=== PATIENT | female | born 2005 | race Two or more races ===

== ENCOUNTER 2024-02-14 18:50 | Emergency (ER) | payer SELFPAY ==
--- NOTE | 2024-02-14 19:03 | ED_ITS ---
HPI - General Adult General Chief complaint: General Medical Stated complaint: left ear pain sore throat Time Seen by Provider: 02/14/24 19:22 Source: patient and other (partner) Mode of arrival: ambulatory Limitations: no limitations History of Present Illness ED Provider: KHURRAM ARTIS PA-C HPI narrative: 18-year-old female with no significant past medical history presents to the emergency department today for evaluation of sore throat, subjective fevers, headaches, bilateral ear pain (left> right) x5 days. Reports taking Tylenol and Motrin yesterday. Denies known sick contacts however she did just arrived in [place] from [place] 5 days ago. Denies eye pain, cough, sputum production, nausea or vomiting, dysphagia, hearing loss, discharge from ears. Related Data Previous Rx's ?Medication ?Instructions ?Recorded benzocaine 15 mg-menthol 2.6 mg 1 nani mucous membrane Q2-4H PRN 02/14/24 lozenges (Cepacol Sore Throat sore throat #16 ea (benzocaine-menthol)) penicillin V potassium 500 mg 500 mg PO BID 10 days #19 tabs 02/14/24 tablet Allergies Allergy/AdvReac Type Severity Reaction Status Date / Time No Known Allergies Allergy Verified 02/14/24 19:11 Review of Systems Review of Systems: Constitutional: No fever, chills, fatigue, night sweats, weight changes ENT/Mouth: No hearing loss, nasal congestion, sinus pain, rhinorrhea, +sore throat, +odynophagia, No dysphagia, +ear pain Eyes: No eye pain, swelling, redness, vision changes, discharge Cardio: No chest pain, palpitations, SMITH, orthopnea, peripheral edema Pulm: No SOB, cough, sputum, wheezing, dyspnea, hemoptysis GI: No nausea, vomiting, hematemesis, abdominal pain, diarrhea, constipation, hematochezia, melena : No irregular bleeding, dysuria, frequency, urgency, hesitancy, hematuria, flank pain MSK: No back pain, neck pain, joint pain, myalgias Skin: No lesions, rashes Neuro: No weakness, numbness, paresthesias, LOC, dizziness, +headache All other systems reviewed and are negative. [facility] Past Medical History Attestation statement: The following information was validated with the patient. Source: old records reviewed and nursing notes reviewed Social History Social History Advance Directives: No Advance Directives Information Provided: No Do you have a plan to hurt others: No Plan Physical Exam ED Vital Signs: Vital Signs - 24 hr 02/14/24 19:05 Temperature 99.6 F Pulse Rate 96 Respiratory Rate 18 Blood Pressure 128/69 Pulse Oximetry 97 Oxygen Delivery Method Room Air BMI result Body Mass Index 41.0 Vital signs stable, afebrile Const General: cooperative, healthy appearing, comfortable and no acute distress Orientation/consciousness: patient oriented x3 Limitations: no limitations HENMT Other: + posterior oropharynx erythematous with bilateral tonsilar edema and tonsilar exudates, uvula is midline, no peritonsillar masses, controlling secretions and speaking in complete sentences. no stridor. + No pain on manipulation of left pinna or tragus. No mastoid tenderness. Left EAC without erythema, edema or discharge. TM intact, erythematous. No effusion or bulging. + No pain on manipulation of right pinna or tragus. No mastoid tenderness. Right EAC without erythema, edema or discharge. TM intact, erythematous. No effusion or bulging. Head: Yes normal to inspection, Yes normocephalic and Yes atraumatic Ears: hearing grossly normal bilaterally, external ears normal, TM's normal bilaterally, EAC's normal, mastoids normal and no periauricular adenopathy General nose exam: Normal external nose present and No nasal discharge present Face and sinus: Yes normal facial exam and Yes sinuses nontender Eyes General: appearance normal, both eyes and all related structures Pupils: Equal, round and reactive pupils present EOM: EOMs intact bilaterally (no pain) Neck Other: + no cervical, submandibular or submental LAD. Neck: Yes normal visual inspection, Yes full ROM and Yes no meningeal signs Resp Effort & Inspection: normal respiratory effort and able to speak in complete sentences Auscultation: clear to auscultation bilaterally Cardio Rate: regular rate Rhythm: regular rhythm GI Inspection: Yes normal to inspection Palpation (GI): Soft to palpation and nontender Skin General skin exam: no rashes or lesions noted Neuro General: patient oriented x3, gait normal, moves all extremities and no meningeal signs Cranial nerves: Yes Equal, round and reactive pupils present Extrem General: Yes normal to inspection Course Course Course Narrative: This is a Rapid Medical Examination (RME) performed by Harry Artis PA-C in triage. Full HPI, ROS, assessment and treatment plan per primary provider in the Main ED. 18 year old female here for eval of sore throat, subjective fevers, bilateral ear pain (L>R) x5 days. no known sick contacts. controlling secretions. uvula midline. b/l tonsilar exudates. bilateral TMs erythematous. no bulging or effusion. Plan: viral and strep swabs Reevaluation(s) Reevaluation #1: 203-- patient has tested negative for COVID, flu, RSV and strep throat. Physical exam findings are consistent with strep throat. I discussed treatment with patient and she is agreeable. Will provide her with 1 dose of penicillin in the ED. Decadron given for tonsillar swelling. No concern for acute airway compromise. Patient has remained stable throughout ED visit today. Discussed worrisome signs and symptoms and when to return to the ED. All questions answered at this time. Patient is agreeable with disposition and stable for discharge. Medical Decision Making Medical Decision Making [facility] Narrative: 18-year-old female with no significant past medical history presents to the emergency department today for evaluation of sore throat, subjective fevers, headaches, bilateral ear pain (left> right) x5 days. vital signs stable. low grade temp to 99.6F. She is nontoxic appearing in no acute distress. On exam, posterior oropharynx erythematous with bilateral tonsilar edema and tonsilar exudates, uvula is midline, no peritonsillar masses, controlling secretions and speaking in complete sentences. no stridor. Lungs are CTA bilaterally. Bilateral TMs erythematous. No effusion or bulging. Differential diagnosis includes viral syndrome, strep throat. Lower suspicion for otitis media, otitis externa. Unlikely mono, [employer] MANA[employer], retropharyngeal abscess, dental abscess, epiglottitis, pneumonia, mastoiditis, malignant otitis externa, Morgan's angina. Plan for viral and strep swabs. Differential Diagnosis Differential Diagnoses: The differential diagnosis associated with the presentation includes as above. Admission/Observation Not indicated Lab Data [facility] Lab Attestation statement: I reviewed the patient's lab results. as above Labs: Lab Results 02/14/24 Range/Units 19:34 Influenza Type A (PCR) NEGATIVE (Negative) Influenza Type B (PCR) NEGATIVE (Negative) RSV RNA Qual (PCR) NEGATIVE (Negative) SARS-CoV-2 RNA (RT-PCR) NEGATIVE (Negative) S. pyogenes GrpA IBIS Negative (Negative) Independent Historian Clinical information obtained from an independent historian. History obtained from or confirmed by: Other (partner) External Record Review External record reviewed: Inpatient record Prescription Management I considered prescription management with: Pain Medication (Cepacol throat lozenges) and Antibiotic (Penicillin) Social Determinants Patient?s care significantly limited by Social Determinants of Health including: Other Social Determinant of Health Critical Care Time Critical Care Time Critical Care Time: Yes Total Critical Care Time: 32 Attestation: Critical care time in the amount of 32 minutes has been provided to the patient in terms of direct patient care, frequent reevaluation, review and interpretation of medical data and results, and management of potentially life- threatening conditions. This is all outside of any medical procedures. Discharge Plan Discharge Clinical Impression: Acute streptococcal pharyngitis Patient Disposition: Home, Self-Care Instructions: Pharyngitis (ED), Strep Throat (ED) Additional Instructions: You were seen in the ED today for evaluation of sore throat. You tested negative for covid/flu/rsv/strep throat. Your exam is consistent with strep throat and thus you will be treated for this. Penicillin is an antibiotic that has been sent to your pharmacy. Take this twice daily for the next 10 days to treat strep throat. You were given one dose in ED today. Take your next dose tomorrow morning. Do not stop taking these antibiotics early or miss any doses as this may cause infection to return or worsen. Cepacol throat lozenges have been sent to your pharmacy to help with throat pain. You may also purchase [id number] chloraseptic spray to numb your throat. Take Tylenol and ibuprofen as needed for body aches or fevers. Make sure to change your toothbrush as this contains bacteria. Strep throat is contagious. If anyone else in your household is exhibiting symptoms, please advise them to come to the ED, urgent care, or to see their primary care provider. Follow up with your primary care provider as needed. Return to the emergency department if your symptoms persist or worsen despite treatment or if you have difficulty swallowing, opening your mouth, or develop a rash. In the case of emergency, call 911.? Prescriptions: New penicillin V potassium 500 mg tablet 500 mg PO BID 10 Days Qty: 19 0RF Cepacol Sore Throat (ray-men) 15-2.6 mg lozenge 1 nani mucous membrane Q2-4H PRN (Reason: sore throat) Qty: 16 0RF Print Language: Albanian
[2024-02-14 19:05] VITALS: BP 128/69; PULSE 96; RESP 18; TEMP 37.6; O2SAT 97; BMI 41.0
[2024-02-14 19:48] LABS: IDNOW Serial# 08D9AD1C; Strep A Nucleic Acid Negative (Negative)
[2024-02-14 20:25] LABS: Influenza A PCR NEGATIVE (Negative); Influenza B PCR NEGATIVE (Negative); Resp Syncy Virus RNA Qual PCR NEGATIVE (Negative); SARS COV2 PCR INHOUSE NEGATIVE (Negative)
[2024-02-14 20:52] VITALS: BP 119/60; PULSE 87; RESP 16; TEMP 37.7; O2SAT 97
[2024-02-14] MEDS: Penicillin V Potassium 250 MG TABLET 500 MG PO (20:58)
[2024-02-14] MEDS: dexAMETHasone sod phosphate 10 MG/ML VIAL IVPUSH (20:58)
--- NOTE | 2024-02-14 21:02 | PC.NURSE ---
Medicated per Mar, reviewed discharge instruction with pt , pt verbalized understanding.
[2024-02-14 21:04] VITALS: BP 119/60; PULSE 87; RESP 16; TEMP 37.7; O2SAT 97
== END 2024-02-14 21:05 | disposition home or self-care (01) ==
PROVIDERS: Physician Assistant Medical; Emergency Provider Emergency Medicine
DX: J02.0 Streptococcal pharyngitis (principal); R50.9 Fever, unspecified; R51.9 Headache, unspecified; H92.03 Otalgia, bilateral; Z03.818 Encounter for observation for suspected exposure to other biological agents ruled out
CPT/HCPCS: 0241U; 87651; 99283; 99284; J1100